=== PATIENT | male | born 1990 | race Caucasian/White ===

== ENCOUNTER 2016-08-12 01:40 | Emergency (ER) | payer OTHER ==
[~2016-08-12] VITALS: Ht 172.7 cm; Wt 61.4 kg
[2016-08-12 01:43] VITALS: BP 148/81; PULSE 74; RESP 18; O2SAT 99
--- NOTE | 2016-08-12 02:53 | ED.REPORT ---
HPI-Abd Pain M Under 39 Date of Service Aug 12, 2016 ED Provider: Allan Hart MD The patient is a healthy 26 year old male who presents to the ED with epigastric abdominal pain onset 1999 last night. The pain began "dull" in nature but is now "sharp." The patient denies nausea, vomiting, dysuria, or other symptoms. He has never had similar symptoms in the past. The patient has no ill contacts. He has no known family history of gallstones or previous abdominal surgeries. Nursing Notes Stated Complaint: STOMACH PAIN Chief Complaint: Male Abdominal Pain Nursing Notes Reviewed: Yes Allergies: Coded Allergies: onion (Verified Allergy, Mild, 08/12/16) Scheduled Omeprazole (Omeprazole) 20 Mg Capsule.dr 20 MG PO DAILY General Time Seen by MD: 02:52 Chief Complaint Abdominal pain Hx Obtained From: Patient Arrived By: Walk-in Sudden in Onset?: Yes Onset Occurred: 5 - 8 hours ago Symptom Duration: Since onset Location: : Epigastric Quality: Dull, Painful, Sharp Severity: Current: Moderate Severity: Maximum: Moderate Pertinent Negative: Relieved by nothing Recent Healthcare: No recent doctor visit Similar Sx Previous: No Past Medical History Past Medical History None reported Past Surgical History Gastrocnemius extention Smoking History Never Smoker Ambulatory Status Independent Review of Systems Constitutional: Denies: Fever Respiratory: Denies: Non-productive cough, Shortness of breath GI: Reports: Abdominal pain (Epigastric), Denies: Nausea, Vomiting Male: Denies Dysuria Complete sys rev & neg: except as marked. Physical Exam Initial Vital Signs Vital Signs (First) Date Time Temp Pulse Resp B/P Pulse Ox O2 Delivery O2 Flow Rate FiO2 08/12/16 01:43 36.7 74 18 148/81 99 Room Air Initial VS: Reviewed, Vital signs normal Head / Eyes: Atraumatic, Normocephalic ENT: Conjunctiva normal, No scleral icterus Neck: Supple, Full range of motion Skin: Warm, Dry, No cyanosis Neurologic: Alert, Oriented, Nonfocal Psychiatric: Mood/affect normal, Behavior normal, Normal thought content General/Constitutional: Awake, Alert, No acute distress Respiratory / Chest: Breath sounds NL, Breath sounds = bilat, No respiratory distress Cardiovascular: Heart rate NL, Regular rhythm, Heart sounds NL Abdomen: Soft, No distention Tenderness/Guarding/Rebound: Positive: Tender epigastric Back: Inspection NL, No CVA tenderness Interpretation & Diagnostics Lab Results Interpretation Result Diagram: 08/12/16 0330 08/12/16 0330 Test 08/12/16 03:30 White Blood Count 13.0th/mm3 (3.8-10.1) Red Blood Count 5.28mil/mm3 (4.40-5.80) Hemoglobin 14.9g/dL (13.8-17.2) Hematocrit 44.3% (41.0-50.0) Mean Corpuscular Volume 83.9fL (81-100) Mean Corpuscular Hemoglobin 28.2pg (27.0-35.0) Mean Corpuscular Hemoglobin Concent 33.6% (32.0-37.0) Red Cell Distribution Width 12.3% (12.3-15.4) Platelet Count 255bil/L (150-400) Neutrophils (%) (Auto) 82.5% (40-74) Lymphocytes (%) (Auto) 10.0% (14-46) Monocytes (%) (Auto) 6.7% (4-12) Eosinophils (%) (Auto) 0.5% (0-5) Basophils (%) (Auto) 0.1% (0-3) Sodium Level 138mEq/L (134-144) Potassium Level 4.0mEq/L (3.5-5.2) Chloride Level 101mEq/L (97-108) Carbon Dioxide Level 24mmol/L (18-29) Blood Urea Nitrogen 11mg/dL (6-20) Creatinine 0.73mg/dL (0.76-1.27) Estimat Glomerular Filtration Rate 137mL/min (>59) Glucose Level 104mg/dL (60-99) Calcium Level 9.1mg/dL (8.5-10.1) Magnesium Level 1.8mg/dL (1.6-2.6) Total Bilirubin 1.2mg/dL (0.0-1.2) Aspartate Amino Transf (AST/SGOT) 21U/L (0-50) Alanine Aminotransferase (ALT/SGPT) 16U/L (0-44) Alkaline Phosphatase 79U/L (25-150) Total Protein 7.7g/dL (6.4-8.4) Albumin 4.5g/dL (3.4-5.0) Lipase 25U/L (13-60) Hold Serna Top Tube Received (Received) Lab Results Interpretation: The elevated white blood count Re-Eval/Medical Decision Med Decision/Clinical Course Epigastric discomfort likely related to dyspepsia. H. pylori was drawn and is pending. There is no evidence of liver or pancreas problems at this time. Prilosec 20 mg daily for the next 2 weeks. Follow up with his regular doctor after that. Re-Evaluation/Progress : Time of Eval: 04:30 Patient Status: Condition unchanged Re-Evaluation/Progress Note: Patient unable to tolerate the GI cocktail. Discussed with patient lab results, diagnosis, and plan for discharge. Follow-up and return to the ER instructions given. Patient agrees with plan for care and all questions were addressed. Counseled Regarding: Diagnosis, Lab results, Need for follow-up, When/why to return to ED Patient Discharge & Departure Primary Impression: Epigastric pain Disposition: Home Discharge Condition All VS Reviewed: Yes Condition: No Change Patient Instructions: Gastritis (ED) Additional Instructions: Your symptoms are most likely from nonspecific inflammation of the lining of the stomach and distal esophagus. The H. pylori test is pending. This is a bacteria which can cause acid indigestion symptoms including gastritis and ulcers. Recommend Prilosec for a milligrams by mouth daily for the next couple of weeks, #28 prescription written. Follow-up with your regular doctor to assess the effectiveness of this medication. [employer] Attestation Portions of this note were transcribed by Zaira Flannery. I, Dr. Hart, personally performed the history, physical exam, and medical decision-making; I reviewed and confirmed the accuracy of the information in the transcribed note. Signed by: Genia Bright, 08/12/2016, 05:05 Allan Hart MD Aug 12, 2016 02:53 ZAIRA FLANNERY Aug 12, 2016 03:00
[2016-08-12] MEDS ORDERED: LidocaineVisc 2%:Antacid 1:1 10 mL Syringe PO ONE (03:00)
[2016-08-12 03:38] LABS: BASOPHILS % (AUTO) 0.1 % (0-3); EOSINOPHILS % (AUTO) 0.5 % (0-5); MONOCYTES % (AUTO) 6.7 % (4-12); Mean Corpuscular Hemoglobin 28.2 pg (27.0-35.0); Mean Corpuscular Volume 83.9 fL (81-100); NEUTROPHILS % (AUTO) 82.5 % (40-74); Platelet Count 255 bil/L (150-400)
[2016-08-12 04:10] LABS: Magnesium 1.8 mg/dL (1.6-2.6)
[2016-08-12] MEDS ORDERED: OMEP20CA11 PO (04:43)
[2016-08-12] MEDS ORDERED: Pantoprazole 40 mg ER24 Tablet PO ONE (04:55)
[2016-08-12 04:59] VITALS: BP 130/68; PULSE 72; RESP 14; O2SAT 99
== END 2016-08-12 05:01 | disposition home or self-care (01) ==
LOC: SED 01:40
DX: R10.13 Epigastric pain (principal); Z79.899 Other long term (current) drug therapy